=== PATIENT | male | born 1970 | race Caucasian/White ===

== ENCOUNTER 2023-12-07 00:23 | Emergency (ER) | payer BC, SELFPAY ==
[2023-12-07 00:24] VITALS: BP 115/93; PULSE 83; RESP 22; TEMP 36.4; O2SAT 96
--- NOTE | 2023-12-07 00:39 | EKG12_ITS ---
Test Reason : REPEAT Blood Pressure : / mmHG Vent. Rate : 072 BPM Atrial Rate : 072 BPM P-R Int : 136 ms QRS Dur : 092 ms QT Int : 402 ms P-R-T Axes : 019 000 015 degrees QTc Int : 440 ms Normal sinus rhythm Normal ECG Confirmed by KRYSTYNA LOU, SARANYA ([id number]), research editor JANE FERGUSON ([id number]) on 12/08/2023 9:35:41 AM Referred By: Confirmed By:SARANYA GREENWOOD MD
--- NOTE | 2023-12-07 00:42 | EDS_ITS ---
HPI History of Present Illness Chief Complaint: Chest Pain Informant: patient Onset/Context/Timing Onset: Hours (3) Activity at onset: sudden and onset Timing: Intermittent and Lasts (minutes) Quality: Positive for Tightness Location: Substernal (radiating straight through to mid-back) Current Severity: Gone Maximum Severity: Moderate Worsened By: - (lying on one side at one point); Not Worsened By Exertion, Movement of Arm, Movement of Torso, Breathing or Coughing Relieved By: Nothing Associated Symptoms: Negative for Nausea, Vomiting, Diaphoresis, Dyspnea, Cough, Fever, Lightheadedness or Palpitations Narrative Narrative: 53-year-old male takes medication for high blood pressure started having chest discomfort while driving home from a tonight, his mid chest, sometimes radiated to the epigastrium, also his mid back. No associated dyspnea, palpitations, lightheadedness, diaphoresis, nausea or vomiting. Never had this before. No history of heart problems that he knows of. No recent leg pain or swelling. [facility] Medical History Hypertension Home Medications ?Medication ?Instructions ?Recorded ?Last Taken ?Type lisinopril 20 1 tab PO DAILY 12/07/23 Unknown History mg-hydrochlorothiazide 12.5 mg tablet Allergy/AdvReac Type Severity Reaction Status Date / Time No Known Allergies Allergy Verified 12/07/23 00:50 Social History Smoking Status: Current every day smoker tobacco type: cigarettes ROS ROS ED Constitutional Constitutional ED: Denies chills or fever(s) Eyes Eyes: Denies change in vision or diplopia ENT ENT ED: Denies rhinorrhea or sore throat Cardiovascular Cardiovascular: Reports chest pain; Denies palpitations Respiratory/Chest Respiratory/Chest: Denies cough or dyspnea Gastrointestinal Gastrointestinal: Denies abdominal pain, diarrhea, nausea or vomiting Genitourinary Genitourinary ED: Denies dysuria or hematuria Musculoskeletal Musculoskeletal: Reports back pain; Denies neck pain Integumentary Denies abscess or rash Neurologic Neurologic: Denies headache(s), paresthesias or weakness Psychiatric Psychiatric: Denies anxiety or suicidal thoughts EXAM Physical Exam Const Vital Signs: 12/07/23 00:24 12/07/23 00:47 12/07/23 01:23 Temperature 97.6 F L Temperature Source Temporal Pulse Rate 83 74 Respiratory Rate 22 H 15 Blood Pressure 115/93 H 122/83 H Blood Pressure Mean 100 96 Pulse Ox 96 96 Oxygen Delivery Method Room Air Room Air Room Air 12/07/23 02:00 12/07/23 03:00 Temperature Temperature Source Pulse Rate 72 63 Respiratory Rate 16 16 Blood Pressure 120/78 129/85 H Blood Pressure Mean 92 99 Pulse Ox 96 98 Oxygen Delivery Method Room Air Room Air Positive well nourished and well developed General Appearance ED: well developed and NAD HEENT Reports moist mucous membranes normocephalic and atraumatic Eyes PERRL and EOMs intact bilaterally Neck full ROM and supple Resp normal respiratory effort and clear to auscultation bilaterally Cardio regular rate, regular rhythm and no murmurs GI non-tender and non-distended Auscultation: normoactive bowel sounds Palpation: soft Back/Spine no CVA tenderness General Back: other FROM Extremity normal to inspection General Extremety ED: Negative for edema, pulses abnormal or tenderness General Extremity: Negative for edema or pulses abnormal Neuro oriented x3, CN's II-XII intact bilaterally and no sensory deficits noted Sensorium / Orientation: awake and alert Motor Exam: strength 5/5 throughout Skin no rashes or lesions noted and no wounds Heart Score History: Moderately Suspicious ECG: Normal Age: >45 - <65 years Risk Factors: 1 or 2 Risk Factors Score: 3 MDM MDM MDM Narrative Medical decision making narrative: EKG initially obtained while patient asymptomatic and is normal. Short while later before workup could be completed, his discomfort returned, he said it was relatively mild but was there. I had respiratory repeat his EKG. it was performed while the patient was having symptoms and it is unchanged compared with his prior EKG, also normal. Two-view chest x-ray normal on my interpretation, no evidence of pneumonia, widened mediastinum radiology in agreement. His initial troponin is in the single digits and the rest of his labs are noted, we did a 2-hour delta and it is negative. In the meantime patient was given a dose of Levsin, after he was given empiric aspirin 162 mg. After the Levsin he had no further episodes of chest discomfort. Although esophageal spasm is in the differential, this is by no means a diagnostic confirmation, and I advised the patient follow-up closely but his risk is relatively low and I do not think he needs to be emergently admitted. He is comfortable with that overall plan. Lab Data Attestation: I reviewed the patient's lab results. Labs: Laboratory Results - last 24 hr 12/07/23 12/07/23 00:30 02:32 WBC 11.3 H RBC 5.20 Hgb 16.5 Hct 49.4 MCV 95.0 H MCH 31.7 MCHC 33.4 RDW Std Deviation 43.8 RDW Coeff of [place] 12.6 Plt Count 296 MPV 9.6 Immature Gran % (Auto) 0.400 Neut % (Auto) 58.0 Lymph % (Auto) 28.6 [place] % (Auto) 10.2 H Eos % (Auto) 2.4 Baso % (Auto) 0.4 Absolute Neuts (auto) 6.5 Absolute Lymphs (auto) 3.22 Nucleated RBC % 0 Sodium 138 Potassium 3.6 Chloride 103 Carbon Dioxide 29.0 Anion Gap 6 BUN 16 Creatinine 1.04 Est GFR (MDRD) Af Amer 97 Est GFR (MDRD) Non-Af 80 BUN/Creatinine Ratio 15.4 Glucose 101 Calcium 9.2 Troponin I High Sens 4 < 3 L Radiography Diagnostic Testing: Clinical Impression(s) from Imaging Studies Chest X-Ray 12/07/23 00:55 IMPRESSION: No acute pulmonary finding. Electronically Signed: Mainor Torre MD at 1:15 EDT Reading Location ID and State: [address] [place] [address] Tel , Service support , Rhythm Strip Rhythm Strip: Sinus Rhythm Rate: 80 Ectopy: None EKG Initial EKG: Attestation: I personally reviewed and interpreted this EKG as follows: Interpretation: Sinus Rhythm and No Acute Injury Pattern Comments: nml EKG Follow-up EKG: Attestation: I personally reviewed and interpreted this EKG as follows: Interpretation: Sinus Rhythm and No Acute Injury Pattern Prior: Unchanged Discharge Plan Triage Chief Complaint: Chest Pain ED Provider: Brian Corrales Dx/Rx/DC Orders Clinical Impression: Chest pain, unspecified Instructions: ED Chest Pain, Uncertain Cause Prescriptions: No Action lisinopril-hydrochlorothiazide 20-12.5 mg tablet 1 tab PO DAILY Primary Care Provider: BERRY ARCHIBALD Referrals: [facility] Doctor,Out of [Non-Staff] - As soon as possible Print Language: Malaysian Disposition Disposition: Home, Self Care
--- NOTE | 2023-12-07 00:45 | EKG12_ITS ---
Test Reason : CP Blood Pressure : / mmHG Vent. Rate : 081 BPM Atrial Rate : 081 BPM P-R Int : 134 ms QRS Dur : 092 ms QT Int : 384 ms P-R-T Axes : 018 000 007 degrees QTc Int : 446 ms Normal sinus rhythm Normal ECG Confirmed by KRYSTYNA LOU, SARANYA ([id number]), map editor JANE FERGUSON ([id number]) on 12/08/2023 9:35:23 AM Referred By: Confirmed By:SARANYA GREENWOOD MD
[2023-12-07 00:47] LABS: Absolute Lymphocyte Count 3.22 X10^3/uL (0.83-4.51); Absolute Neutrophil Count 6.5 X10^3/uL (2.0-7.7); Basophil# 0.05 X10^3/uL; Basophil% 0.4 % (0-1); Eosinophil# 0.27 X10^3/uL; Eosinophils% 2.4 % (0-5); Hematocrit 49.4 % (40-54); Hemoglobin 16.5 g/dL (13.0-16.5); Lymphocyte # 3.22 X10^3/ul (0.83-4.51); Lymphocyte % 28.6 % (19-41); Mean Corp Hgb Conc 33.4 g/dL (32-36); Mean Corpuscular Hgb 31.7 pg (27.0-32.0); Mean Platelet Vol. 9.6 fl (6.2-12.0); Monocyte# 1.15 X10^3/uL; Monocyte% 10.2 % (0-10); NRBC Flagged by Analyzer 0 % (0-5); Neutrophil # 6.53 X10^3/uL (2.7-7.7); Platelet Count 296 K/mm3 (150-450); RBC Distribution Width CV 12.6 % (11.6-14.6); RBC Distribution Width SD 43.8 fl (35.1-43.9); White Blood Count 11.3 K/mm3 (4.4-11.0)
[2023-12-07] MEDS: Aspirin 81 MG TAB.CHEW 162 MG PO (00:55)
--- NOTE | 2023-12-07 00:55 | RAD_ITS ---
INDICATION: CHEST PAIN EXAMINATION/TECHNIQUE: X-RAY - XR Chest 2 Views COMPARISON: No relevant prior comparison study available FINDINGS: LINES/DEVICES: None. LUNGS: The lungs are well expanded. No consolidation, edema or effusion. No pneumothorax. MEDIASTINUM AND CARDIOVASCULAR STRUCTURES: Cardiac silhouette not enlarged. Central airways and mediastinal contour are unremarkable. BONES AND SOFT TISSUES: No acute abnormality. RAD/Chest PA and Lateral IMPRESSION: No acute pulmonary finding. Electronically Signed: Mainor Torre MD at 1:15 EDT ,
[2023-12-07 01:23] VITALS: BP 122/83; PULSE 74; RESP 15; O2SAT 96
[2023-12-07 01:37] LABS: Anion Gap 6 (5-15); BUN 16 mg/dL (7-18); BUN/Creat Ratio 15.4 RATIO (10-20); Calcium,Total 9.2 mg/dL (8.5-10.1); Chloride 103 mmol/L (98-107); Creatinine, Serum 1.04 mg/dL (0.70-1.30); EST Glomerular Filtration Rate 80 mL/min (>60); Est Glom Filt Rate - Afr Amer 97 mL/min (>60); Glucose 101 mg/dL (74-106); Potassium 3.6 mmol/L (3.5-5.1); Sodium Level 138 mmol/L (136-145); Troponin-I HS (w/2H Reflex) 4 pg/mL (3.0-78.0)
[2023-12-07 02:00] VITALS: BP 120/78; PULSE 72; RESP 16; O2SAT 96
[2023-12-07] MEDS: Hyoscyamine Sulfate 0.125 MG Tablet 0.25 MG PO (02:26)
[2023-12-07 02:44] LABS: Reflex Troponin-HS? (from REC) Y
[2023-12-07 03:00] VITALS: BP 129/85; PULSE 63; RESP 16; O2SAT 98
[2023-12-07 03:05] LABS: Troponin-I HS < 3 pg/mL (3.0-78.0)
[2023-12-07 03:23] VITALS: BP 129/85; PULSE 68; RESP 16; TEMP 36.4; O2SAT 99
== END 2023-12-07 03:24 | disposition home or self-care (01) ==
PROVIDERS: Emergency Provider Emergency Medicine; Visit Provider Emergency Medicine
DX: R07.9 Chest pain, unspecified (principal); F17.210 Nicotine dependence, cigarettes, uncomplicated; I10 Essential (primary) hypertension; Z79.899 Other long term (current) drug therapy
CPT/HCPCS: 71046; 80048; 84484; 85025; 93005; 99285; A4216